=== PATIENT | female | born 1985 | race Caucasian/White ===

== ENCOUNTER → 2018-01-06 | Outpatient (CLI) | payer BC | LOC: COL.RAD 10:30 | DX: G43.909 Migraine, unspecified, not intractable, without status migrainosus (principal) ==

== ENCOUNTER → 2020-09-22 | Outpatient (CLI) | payer BC ==
--- NOTE | 2020-09-22 13:22 | NUR ---
Pt, Marlen Dunn, presents for outpatient consult with 7 day old baby girl, Jaimie Connell, for a evaluation as order by Dr. Cervantes. She is accompanied by her spouse, Jimy Connell. Jaimie was born on [birth year] at [facility] in [place], [place]. weight was 3311 gms. Pt has dx of Travis's Disease. Jaimie has been seen by Dr. Cervantes on 09/19/20 and on 09/21/20 and she weighed 2980gms at each of these appts. Today Jaimie weighs 2990 gms, which is 10% below weight. Pt reports Jaimie nursed x10 in the last 24 hours, has had 8 voids and 6 stools. At this appt, pt's breasts feel firm. She is able to latch Jaimie pretty well, but advised to roll baby's lips out a little further. Swallows noted. When swallows slowed, pt advised on breast massage and compression. Pt reports nipple soreness is improving, small abrasion on the right noted. After nursing the right breast Jaimie had a gain of 0.9oz (22 gms). From the left a gain of 0.6oz (20 gms). She is placed back to the breast while plan of care reviewed and has a total gain of 1.7oz (46 gms). Desired intake for age and weight is 2.5-3oz per feeding. LC does evaluation of oral cavity with gloved finger, infant seems to have a normal suck. LC advises use of 3-step feeding plan: Breast, supplement, and pump to increase intake volume and evaluate if there is residual milk available or if the baby is getting the breasts empited well and there is a low milk supply. Pt agrees to work on this feeding plan over the weekend. POC: Breastfeed, supplement ~1oz p , pump x10 minutes after . F/U: Pt has appt with Dr. Cervantes on Friday, September 25, and follow up with this LC on September 28 @ 1300. Questions invited and answered.
== END ==
LOC: LAC 10:51
DX: Z39.1 Encounter for care and examination of lactating mother (principal); Z71.89 Other specified counseling